=== PATIENT | male | born 1995 | race Asian ===

== ENCOUNTER 2018-02-05 08:28 | Emergency (ER) | payer OTHER ==
[~2018-02-05] VITALS: Ht 175.3 cm; Wt 59.0 kg
[2018-02-05 08:31] VITALS: BP 115/64
[2018-02-05] MEDS ORDERED: AMOXICILLIN 50500 M1 PO (09:49)
[2018-02-05] MEDS ORDERED: ZOFRAN4 MG PO (09:49)
== END 2018-02-05 09:53 | disposition home or self-care (01) ==
LOC: ER 08:28
DX: K04.7 Periapical abscess without sinus (principal); F17.210 Nicotine dependence, cigarettes, uncomplicated